=== PATIENT | male | born 1960 | race American Indian/Alaskan Native ===

== ENCOUNTER 2019-09-03 15:42 | Emergency (ER) | payer OTHER ==
[2019-09-03 15:52] VITALS: BP 102/69; PULSE 59; TEMP 98; BMI 25.3
--- NOTE | 2019-09-03 15:52 | PDOC ---
Rapid Medical Evaluation Time Seen by Provider: 09/03/19 15:49 Medical Evaluation: 09/03/19 15:51 Pt c/o: rt knee pain and clicking after shoveling today, no previous injury today Pt on brief exam: ambulatory, FROM of patellar joint, no deformity Pt ordered for: knee xray Pt to proceed to the ED Discharge Disposition - Diagnosis Knee pain, Strain of right knee - Discharge Dispostion Disposition: HOME Condition at time of disposition: Stable - Referrals Referrals: Pranav Condon DO [Staff Physician] - - Patient Instructions Additional Instructions: Tylenol for pain. Follow-up with orthopedic surgery in 2 to 3 days without fail for further evaluation and treatment options. Return to the emergency room for worsening symptoms. - Post Discharge Activity
--- NOTE | 2019-09-03 16:20 | PDOC ---
History of Present Illness - General Chief Complaint: Injury Stated Complaint: R/KNEE INJURY Time Seen by Provider: 09/03/19 15:49 - History of Present Illness Initial Comments: 09/03/19 16:18 59-year-old male with multiple comorbidities presents for evaluation of right knee pain after shoveling snow yesterday no systemic symptoms or radiation of symptoms Past History - Past Medical History Allergies/Adverse Reactions: Allergies Allergy/AdvReac Type Severity Reaction Status Date / Time No Known Allergies Allergy Verified 09/03/19 15:52 Cardiac Disorders: Yes COPD: No - Surgical History Cardiac Surgery: Yes ([facility]) - Psycho Social/Smoking Cessation Hx Smoking History: Never smoked Review of Systems - Review of Systems Musculoskeletal: Yes: Joint Pain *Physical Exam - Vital Signs Last Vital Signs Temp Pulse Resp BP Pulse Ox 98 F 59 L 18 102/69 98 09/03/19 15:48 09/03/19 15:48 09/03/19 15:48 09/03/19 15:48 09/03/19 15:48 - Physical Exam 09/03/19 16:19 Right knee skin color and temperature normal range of motion is full. There is no instability or joint line tenderness mild medial lateral patellofemoral facet tenderness no instability or apprehension neurovascular intact thighs and calves are soft and nontender normal hip and ankle range of motion Medical Decision Making - Medical Decision Making 09/03/19 16:19 X-rays of the right knee show mild arthritic changes. This is a right knee strain follow-up with Ortho weight-bear as tolerated patient refused crutches Discharge - Discharge Information Problems reviewed: Yes Clinical Impression/Diagnosis: Knee pain, Strain of right knee Condition: Stable Disposition: HOME - Admission No - Follow up/Referral Referrals: Pranav Condon DO [Staff Physician] - - Patient Discharge Instructions Additional Instructions: Tylenol for pain. Follow-up with orthopedic surgery in 2 to 3 days without fail for further evaluation and treatment options. Return to the emergency room for worsening symptoms. - Post Discharge Activity
== END 2019-09-03 17:05 | disposition home or self-care (01) ==
LOC: JERFT 15:42
DX: S83.91XA Sprain of unspecified site of right knee, initial encounter (principal); X58.XXXA Exposure to other specified factors, initial encounter; Y93.H1 Activity, digging, shoveling and raking; Y99.8 Other external cause status; Z95.5 Presence of coronary angioplasty implant and graft
CPT/HCPCS: 73562-TC-RT-FY; 99281-25

== ENCOUNTER 2025-07-30 06:11 | Day surgery (SDC) | payer OTHER ==
[2025-07-22 12:26] VITALS: BMI 21.2
[2025-07-30 12:06] VITALS: TEMP 97.2
[2025-07-30 12:45] VITALS: BP 122/80; PULSE 52; RESP 13
== END 2025-07-30 13:00 | disposition home or self-care (01) ==
LOC: JASU-ENDO 06:11
PROVIDERS: ATTEND Internal Medicine Gastroenterology
PROC: 0DB98ZX Excision of Duodenum, Via Natural or Artificial Opening Endoscopic, Diagnostic (ICD-10-PCS; 2025-07-30)
PROC: 0DB78ZX Excision of Stomach, Pylorus, Via Natural or Artificial Opening Endoscopic, Diagnostic (ICD-10-PCS; 2025-07-30)
PROC: 0DB68ZX Excision of Stomach, Via Natural or Artificial Opening Endoscopic, Diagnostic (ICD-10-PCS; 2025-07-30)
PROC: 0DBL8ZX Excision of Transverse Colon, Via Natural or Artificial Opening Endoscopic, Diagnostic (ICD-10-PCS; principal; 2025-07-30 10:00)
DX: Z12.11 Encounter for screening for malignant neoplasm of colon (principal); D12.3 Benign neoplasm of transverse colon; K57.30 Diverticulosis of large intestine without perforation or abscess without bleeding; K64.4 Residual hemorrhoidal skin tags; K63.89 Other specified diseases of intestine; K31.89 Other diseases of stomach and duodenum